=== PATIENT | male | born 1965 | race Caucasian/White ===

== ENCOUNTER 2021-12-25 13:45 | Observation (INO) ==
--- NOTE | 2021-12-25 14:47 | Emergency Department Note ---
Nausea/Vomiting/Diarrhea HPI General Chief complaint: Nausea/Vomiting/Diarrhea Stated complaint: gastric obstruction Time Seen by Provider: 12/25/21 14:45 Source: patient Mode of arrival: ambulatory Limitations: no limitations History of Present Illness HPI Narrative: Narrative: Patient is a 56-year-old male that presents to the emergency department today with a chief complaint of feeling his food is stuck in his esophagus. This started yesterday evening when he was eating vegetables wrapped in saul. He feels that there is a piece of saul stuck in his esophagus. He has had this occur once in the past and went to the emergency department and indicates that he was given morphine and nitro that resolved his problem. He has a history of a gastric bypass that was done in the early . He indicates that since yesterday he has not been able to keep down any fluids and approximately 10 minutes to 30 minutes after he drinks fluids he vomits the fluid back up. He denies any abdominal pains, chest pain, shortness of breath, or difficulty breathing. He has not had any fevers or chills. He denies any constipation, diarrhea, melena, or hematochezia. Related Data Home Medications Medication Instructions Recorded Confirmed cyclobenzaprine 10 mg tablet 1 tab PO HS 12/25/21 12/25/21 diphenhydramine 25 1 tab PO QHS 12/25/21 12/25/21 mg-acetaminophen 500 mg tablet (Tylenol PM Extra Strength) lisdexamfetamine 70 mg capsule 1 cap PO QAM 12/25/21 12/25/21 (Vyvanse) metoprolol tartrate 50 mg tablet 1 tab PO BID 12/25/21 12/25/21 venlafaxine 150 mg 1 cap PO QHS 12/25/21 12/25/21 capsule,extended release 24 hr Allergies Allergy/AdvReac Type Severity Reaction Status Date / Time No Known Drug Allergies Allergy Unverified 12/25/21 13:59 Review of Systems ROS ROS Narrative: Narrative: All systems ED: reviewed and negative except as stated. [facility] Narrative Patient History Narrative: Narrative: Medical/Surgical/Family History All Active Problems (Updated 12/25/21 @ 19:35 by JAQUAN Angel) Recurrent vomiting (Acute) Foreign body of esophagus (Acute) Surgical History (Updated 12/25/21 @ 17:45 by Obed Herndon MD) Gastric bypass status for obesity History of appendectomy Exam Narrative Narrative: Narrative: General Limitations: no limitations General appearance: Present alert and in no apparent distress ENT ENT: Present normal oropharynx and mucous membranes moist Neck Neck: Present normal inspection and full ROM; Absent lymphadenopathy Chest Chest: Present symmetric chest wall rise Respiratory Respiratory: Present normal lung sounds bilaterally; Absent respiratory distress, rales/crackles or accessory muscle use Cardiovascular Cardiovascular: Present regular rate, normal rhythm and normal heart sounds Adbominal Abdominal: Present soft and normal bowel sounds; Absent distention, tenderness, mass or hernia Extremities Extremities: Present normal inspection and normal capillary refill Neurological Neurological: Present alert and oriented X3 Psychiatric Psychiatric: Present normal affect and normal mood Skin Skin: Present warm (WNL), dry and normal color Course Vital Signs Vital signs: Vital Signs Temperature 97.7 F 12/25/21 13:56 Pulse Rate 70 12/25/21 13:56 Respiratory Rate 16 12/25/21 13:56 Blood Pressure 181/104 12/25/21 13:56 Pulse Oximetry (%) 97 12/25/21 13:56 Oxygen Delivery Method 12/25/21 13:56 Temperature 97.7 F 12/25/21 13:56 Pulse Rate 76 12/25/21 19:01 Respiratory Rate 16 12/25/21 13:56 Blood Pressure 172/102 12/25/21 19:01 Pulse Oximetry (%) 94 12/25/21 19:01 Oxygen Delivery Method 12/25/21 13:56 MDM MDM Narrative Medical decision making narrative: Narrative: Patient is a 56-year-old male with past surgical history of gastric bypass in the early that comes in today after he was eating vegetables that was wrapped in saul yesterday evening and feels that food is stuck in the esophagus area. He has not been able to keep down fluids. Today CBC, lipase, CMP was obtained which are all rather unremarkable. Abdominal x-ray obtained today that does not show any evidence of small bowel obstruction and has nonspecific bowel gas pattern. He was given 1 L normal saline, Reglan which did not improve his symptoms at all and he did have some more vomiting. 1 mg of IV glucagon given to see if this may help with resolving symptoms and he did report some improvement with symptom, however with oral challenge patient was unable to keep down fluids and vomited water shortly after ingestion. I was able to speak with Dr. Herndon who is on-call today for general surgery regarding this patient. He agrees to accept patient to hospital admission for observation where he will plan on repeating doses of glucagon and Reglan to see if we can have patient pass the foreign body, and if unsuccessful he will likely need to take patient to the OR for EGD. Lab Data Result diagrams: 12/25/21 15:08 12/25/21 15:08 Labs: Lab Results 12/25/21 12/25/21 Range/Units 15:08 15:08 WBC 6.8 (4.5-11.0) K/mcL RBC 4.79 (4.63-6.08) M/mcL Hgb 14.5 (13.7-17.5) g/dL Hct 43.7 (40.1-51.0) % MCV 91.2 (80.0-100.0) fL MCH 30.3 (26.0-34.0) pg MCHC 33.2 (31.0-36.0) g/dL RDW 13.2 (11.5-14.5) % Plt Count 263 (140-440) K/mcL MPV 9.6 (8.8-12.5) fL Immature Gran % (Auto) 0.1 (0.0-0.5) % Neut % (Auto) 65.6 (38.0-78.0) % Lymph % (Auto) 22.9 (15.5-49.0) % [place] % (Auto) 8.9 (1.0-12.0) % Eos % (Auto) 1.8 (0.0-7.0) % Baso % (Auto) 0.7 (0.0-2.0) % Lymph # (Auto) 1.56 (1.50-4.80) K/mcL [place] # (Auto) 0.61 (0.10-0.90) K/mcL Eos # (Auto) 0.12 (0.00-0.70) K/mcL Baso # (Auto) 0.05 (0.00-0.30) K/mcL Immature Gran # 0.01 (0.00-0.05) K/mcl Absolute Neutrophils 4.47 (1.80-8.00) K/mcL Sodium 140 (133-145) mmol/L Potassium 3.9 (3.3-5.1) mmol/L Chloride 102 (96-108) mmol/L Carbon Dioxide 28 (22-30) mmol/L Anion Gap 10.0 (8.0-16.0) BUN 11 (6-20) mg/dL Creatinine 1.0 (0.7-1.2) mg/dL GFR Calculation 84 Glucose 94 (70-105) mg/dL Calcium 9.2 (8.6-10.4) mg/dL Total Bilirubin 0.9 (0.1-1.0) mg/dL AST 14 (<40) U/L ALT 9 (<40) U/L Alkaline Phosphatase 72 (39-117) U/L Total Protein 7.1 (5.9-8.4) gm/dL Albumin 4.1 (3.2-5.2) gm/dL Globulin 3.0 (2.2-3.7) gm/dL Albumin/Globulin Ratio 1.4 (1.0-2.3) Lipase 16 (7-60) U/L Radiology Data Radiology results reviewed: Yes I reviewed the patient's radiology results. Radiology results narrative: Ordering Physician:Janusz Thomas Date of Service:12/25/21 Procedure(s):XR abdomen 2V INDICATION: emesis TECHNIQUE: Supine and upright abdomen. COMPARISON: None FINDINGS:Bowel gas pattern is unremarkable. No dilated gas-filled small bowel. No pneumatosis. No biliary or portal venous gas. There is no pneumoperitoneum. There are multiple surgical clips at the level of the gastroesophageal junction and in the right upper quadrant. IMPRESSION: Nonspecific bowel gas pattern. No evidence for mechanical small bowel obstruction Interpreted and Authenticated by: Jaime Armendariz 12/25/21 Discharge Plan Patient/Caregiver Discharge Instructions Pt seen by HERD TESTER/PA only: No Clinical Impression: Foreign body of esophagus Patient Disposition: Xfer As Outpt/Obs ([facility]) Discharge Date/Time: 12/25/21 19:37
[2021-12-25] MEDS ORDERED: 0.9 % SODIUM CHLORIDE 1,000 ML IV ONE (14:51)
[2021-12-25] MEDS ORDERED: METOCLOPRAMIDE 10 MG/2 ML VIAL IV ONE (14:51)
[2021-12-25 15:52] LABS: Basophils # (Auto) 0.05 K/mcL (0.00-0.30); Basophils % (Auto) 0.7 % (0.0-2.0); Eosinophils # (Auto) 0.12 K/mcL (0.00-0.70); Eosinophils % (Auto) 1.8 % (0.0-7.0); Hematocrit 43.7 % (40.1-51.0); Hemoglobin 14.5 g/dL (13.7-17.5); Lymphocytes # (Auto) 1.56 K/mcL (1.50-4.80); Lymphocytes % (Auto) 22.9 % (15.5-49.0); Mean Cell Volume 91.2 fL (80.0-100.0); Mean Corpuscular HGB Conc 33.2 g/dL (31.0-36.0); Mean Platelet Volume 9.6 fL (8.8-12.5); Monocytes # (Auto) 0.61 K/mcL (0.10-0.90); Monocytes % (Auto) 8.9 % (1.0-12.0); Neutrophils % (Auto) 65.6 % (38.0-78.0); Platelet Count 263 K/mcL (140-440); RBC 4.79 M/mcL (4.63-6.08); Red Cell Distribution Width 13.2 % (11.5-14.5); WBC 6.8 K/mcL (4.5-11.0)
[2021-12-25] MEDS ORDERED: GLUCAGON,HUMAN RECOMBINANT 1 MG VIAL IV ONE (16:03)
[2021-12-25 16:12] LABS: ALT/SGPT 9 U/L (<40); AST/SGOT 14 U/L (<40); Albumin 4.1 gm/dL (3.2-5.2); Albumin/Globulin Ratio 1.4 (1.0-2.3); Alkaline Phosphatase 72 U/L (39-117); Bilirubin,Total 0.9 mg/dL (0.1-1.0); Blood Urea Nitrogen 11 mg/dL (6-20); Calcium 9.2 mg/dL (8.6-10.4); Carbon Dioxide 28 mmol/L (22-30); Chloride 102 mmol/L (96-108); Glomerular Filtration Rate 84; Glucose 94 mg/dL (70-105)
--- NOTE | 2021-12-25 17:00 | XRay Report ---
INDICATION: emesis TECHNIQUE: Supine and upright abdomen. COMPARISON: None FINDINGS:Bowel gas pattern is unremarkable. No dilated gas-filled small bowel. No pneumatosis. No biliary or portal venous gas. There is no pneumoperitoneum. There are multiple surgical clips at the level of the gastroesophageal junction and in the right upper quadrant. IMPRESSION: Nonspecific bowel gas pattern. No evidence for mechanical small bowel obstruction Interpreted and Authenticated by: Jaime Armendariz 12/25/21
[2021-12-25] MEDS ORDERED: ONDANSETRON 4 MG/2 ML VIAL IV ONE (17:09)
[2021-12-25] MEDS ORDERED: PROMETHAZINE 25 MG/ML VIAL IV PRN (17:31)
[2021-12-25] MEDS ORDERED: ONDANSETRON 4 MG/2 ML VIAL IV PRN (17:31)
[2021-12-25] MEDS ORDERED: DIAZEPAM 10 MG/2 ML SYRINGE IV PRN (17:37)
[2021-12-25] MEDS: 0.9 % SODIUM CHLORIDE 1,000 ML IV SCH ×2 (17:41→21:15)
--- NOTE | 2021-12-25 17:48 | General Surg History&Physical ---
HPI History of Present Illness Patient information: Note initiated : 12/25/21 at 5:42 pm Service Date, if different from initiated Date: [] Patient: Rishi Maldonado a 56 y/o M admitted on for gastric obstruction. Chief Complaint: [] Chief complaint: Foreign body of esophagus History of present illness: Mr. Maldonado is a 56 year old M with prior history of foreign body of the esophagus with obstruction. Yesterday the patient was weak eating some saul and felt as if his esophagus was obstructed. He tried throughout the night to dislodge it but had recurrent vomiting. He did not have any hematemesis. Patient came to the emergency room where he was treated with Reglan and glucagon without results. He has responded to Reglan and glucagon in the past so he is admitted and he will receive the medication every 4-6 hours as needed. If he does not dislodge the saul by the a.m. he will have upper endoscopy. If he should dislodge it he will be given clear liquids and monitored closely. Review of Systems All systems: reviewed and no additional remarkable complaints except as stated PFSH PFSH All Active Problems (Updated 12/25/21 @ 17:47 by Obed Herndon MD) Recurrent vomiting (Acute) Foreign body of esophagus (Acute) Surgical History (Updated 12/25/21 @ 17:45 by Obed Herndon MD) Gastric bypass status for obesity History of appendectomy MEDS/ALLERGIES Home Medications and Allergies Allergies Allergy/AdvReac Type Severity Reaction Status Date / Time No Known Drug Allergies Allergy Unverified 12/25/21 13:59 Physical Examination Vital Signs Vital signs: Temp Pulse Resp BP Pulse Ox O2 Del Method 97.7 F 71 16 182/112 97 12/25/21 13:56 12/25/21 17:25 12/25/21 13:56 12/25/21 17:25 12/25/21 17:25 12/25/21 13:56 General physical appearance General physical exam: well developed, well nourished, no distress, no pain and obese Eyes Eye exam: PERRL and normal ocular movement ENT ENT exam: normal mucosa Head Head exam IM: Present atraumatic, normal inspection and normocephalic Neck Neck exam: no masses, no bruits, trachea midline, no lymphadenopathy and no venous distension Cardiovascular Cardiovascular exam IM: Present normal rate and rhythm, bradycardia, irregular rhythm, +S1 and +S2; Absent JVD Respiratory Respiratory exam: normal expansion, normal respiratory effort and clear to auscultation Abdomen Abdomen: Present non tender and surgical scars (Healed lower midline scar) Hernia: Present incisional (Upper midline incisional hernia) Integumentary Integumentary: Present no rash, no growths and no abnormal pigmentation Neurologic Neurologic: Present normal coordination and normal sensation Musculoskeletal Musculoskeletal: Present normal gait, normal posture and other Psychiatric Psychiatric: Present oriented to time, oriented to person, oriented to place, speech is normal and memory intact Results Labs Result diagrams: 12/25/21 15:08 12/25/21 15:08 Labs: Diabetes panel 12/25/21 Range/Units 15:08 Sodium 140 (133-145) mmol/L Potassium 3.9 (3.3-5.1) mmol/L Chloride 102 (96-108) mmol/L Carbon Dioxide 28 (22-30) mmol/L BUN 11 (6-20) mg/dL Creatinine 1.0 (0.7-1.2) mg/dL Glucose 94 (70-105) mg/dL Calcium 9.2 (8.6-10.4) mg/dL AST 14 (<40) U/L ALT 9 (<40) U/L Alkaline Phosphatase 72 (39-117) U/L Total Protein 7.1 (5.9-8.4) gm/dL Albumin 4.1 (3.2-5.2) gm/dL Calcium panel 12/25/21 Range/Units 15:08 Calcium 9.2 (8.6-10.4) mg/dL Albumin 4.1 (3.2-5.2) gm/dL Pituitary panel 12/25/21 Range/Units 15:08 Sodium 140 (133-145) mmol/L Potassium 3.9 (3.3-5.1) mmol/L Chloride 102 (96-108) mmol/L Carbon Dioxide 28 (22-30) mmol/L BUN 11 (6-20) mg/dL Creatinine 1.0 (0.7-1.2) mg/dL Glucose 94 (70-105) mg/dL Calcium 9.2 (8.6-10.4) mg/dL Adrenal panel 12/25/21 Range/Units 15:08 Sodium 140 (133-145) mmol/L Potassium 3.9 (3.3-5.1) mmol/L Chloride 102 (96-108) mmol/L Carbon Dioxide 28 (22-30) mmol/L BUN 11 (6-20) mg/dL Creatinine 1.0 (0.7-1.2) mg/dL Glucose 94 (70-105) mg/dL Calcium 9.2 (8.6-10.4) mg/dL Total Bilirubin 0.9 (0.1-1.0) mg/dL AST 14 (<40) U/L ALT 9 (<40) U/L Alkaline Phosphatase 72 (39-117) U/L Total Protein 7.1 (5.9-8.4) gm/dL Albumin 4.1 (3.2-5.2) gm/dL All other labs normal. A/P Assessment and plan (1) Foreign body of esophagus: Status: Acute (2) Recurrent vomiting: Status: Acute Plan IV normal saline at 100 cc/h Reglan 10 mg IV every 6 hours Glucagon 1 mg IV every 4 hours x4 doses Diazepam 5 mg IV every 4 hours Sepsis Sepsis Identified: No Time Spent With Patient Time: Total time spent is greater than 50% in coordination of care (as documented) at patient's floor/unit and/or counseling patient:
[2021-12-25] MEDS: METOCLOPRAMIDE 10 MG/2 ML VIAL IV SCH (18:45)
[2021-12-25] MEDS: GLUCAGON,HUMAN RECOMBINANT 1 MG VIAL IV SCH (20:30)
[2021-12-26] MEDS: GLUCAGON,HUMAN RECOMBINANT 1 MG VIAL IV SCH ×3 (00:15→08:38)
[2021-12-26] MEDS: METOCLOPRAMIDE 10 MG/2 ML VIAL IV SCH ×2 (00:15→05:50)
[2021-12-26] MEDS: 0.9 % SODIUM CHLORIDE 1,000 ML IV SCH (04:42)
[2021-12-26] MEDS ORDERED: PANTOPRAZOLE 40 MG VIAL IV SCH (07:30)
[2021-12-26] MEDS ORDERED: DIAZEPAM 10 MG/2 ML SYRINGE IV PRN (07:45)
--- NOTE | 2021-12-26 10:15 | XRay Report ---
INDICATION: h/o difficulty swallowing;s/p gastric bypass; TECHNIQUE: Routine barium swallow and upper GI. 46 seconds fluoroscopy utilized COMPARISON: None. FINDINGS: Normal esophageal peristalsis although mild delay in emptying of the esophagus. There is no esophageal stricture. No esophageal mass. There is bulbous dilatation distally with an appearance most consistent with prominent phrenic ampulla. There is slight extension of gastric mucosa above the diaphragm consistent with hiatal hernia. Patient has undergone previous gastric bypass. There is no obstruction. There is rapid passage of contrast material into the small bowel. There is no inducible gastroesophageal reflux IMPRESSION: 1. No esophageal stricture or mass 2. 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 Previous gastric bypass. No obstruction Interpreted and Authenticated by: Jaime Armendariz 12/26/21
--- NOTE | 2021-12-26 10:44 | Discharge Summary ---
Discharge Provider Provider IMPORTANT FOLLOW-UP INFORMATION FOR PCP: Patient information: Note initiated : 12/26/21 at 10:38 am Service Date, if different from initiated Date: [] Patient: Rishi Maldonado 56 y/o M admitted on 12/25/21 for gastric obstruction. Chief Complaint: [] Date of admission: 12/25/21 19:50 Discharge date: 12/26/21 Primary care physician: Renato Guajardo Admitting clinician: Obed Herndon Attending physician on admission: Obed Herndon Consults: 12/25/21 Consult to Physician [CONS] Stat Comment: Consulting Provider: Obed Herndon Reason For Exam: Physician to Consult Attending physician on discharge: Obed Herndon Discharging clinician: Obed Herndon COURSE Hospital Course Hospital course: Patient is doing well. He noticed during the night that his saliva was passing without difficulty. He has not had any emesis since admission. He was given a glass of water earlier today and that passed without difficulty. Upper GI series was done and it showed normal emptying of the esophagus. The EG junction did not show any evidence of stricture and passage of contrast into the small bowel was unremarkable. Patient is clinically stable and is ready for discharge. Discharge diagnosis: Foreign body of the esophagus Secondary discharge diagnosis: Distal esophageal obstruction, resolved Reason for admission: Foreign body of the esophagus Procedures: None Pertinent studies/significant findings: Upper GI series Complications: None Time Spent with Patient Time attestation: Total time spent providing and/or coordinating discharge services: Time spent: Less than 30 minutes Physical Examination Vital Signs Vital signs: Temp Pulse Resp BP Pulse Ox O2 Del Method O2 Flow Rate 98 F 53 L 20 157/87 98 0 12/26/21 07:42 12/26/21 04:00 12/26/21 07:42 12/26/21 07:42 12/26/21 07:42 12/26/21 07:42 12/26/21 04:00 General physical appearance General physical exam: well developed, well nourished, no distress and no pain Eyes Eye exam: PERRL and normal ocular movement ENT ENT exam: normal nares and no hearing loss Head Head exam IM: Present atraumatic, normal inspection and normocephalic Neck Neck exam: no masses, no bruits, trachea midline, no lymphadenopathy and no venous distension Cardiovascular Cardiovascular exam IM: Present normal rate and rhythm, +S1 and +S2 Respiratory Respiratory exam: normal expansion, normal respiratory effort and clear to auscultation Abdomen Abdomen: Present soft and non tender; Absent guarding or distended Integumentary Integumentary: Present no rash, no growths and no abnormal pigmentation Neurologic Neurologic: Present normal coordination and normal sensation Musculoskeletal Musculoskeletal: Present normal gait and normal posture Psychiatric Psychiatric: Present oriented to time, oriented to person, oriented to place, speech is normal and memory intact Discharge Plan Patient/Caregiver Discharge Instructions Activity: increase activity as tolerated Diet: Regular Diet Prescriptions: No Action venlafaxine 150 mg capsule,extended release 24hr 1 cap PO QHS Vyvanse 70 mg capsule 1 cap PO QAM metoprolol tartrate 50 mg tablet 1 tab PO QHS cyclobenzaprine 10 mg tablet 1 tab PO HS diphenhydramine-acetaminophen [Tylenol PM Extra Strength] 25-500 mg Tablet 1 tab PO QHS Prescription drug monitoring program results: PDMP not reviewed Follow Up Plan Follow up with: Renato Guajardo MD [Primary Care Provider] - Patient Disposition: Home, Self-Care Plan of Treatment: Routine follow-up with oncology and with Dr. Beal Prognosis: Good Rehab Potential: Good I certify that the patient requires SNF services: No Overall status at discharge: patient is back to baseline Discharge Orders: Discharge Order (Routine); Ordered 12/26/21 Ordered By: Obed Herndon Pending Pending Pending: Resuscitation Status Full Code Diet NPO Diet (NOW) Start Sat Dec 26 1731 Sodium Chloride (Sodium Chloride 0.9%) 1,000 mls @ 100 mls/hr IV .Q10H DAVID Last Infusion: 12/26/21 08:38 Dose: 0 mls/hr Documented By: Admin: 12/26/21 04:42 Dose: Not Given Documented By: [email or web address] Admin: 12/25/21 21:15 Dose: 100 mls/hr Documented By: [email or web address] Infusion: 12/25/21 21:15 Dose: 0 mls/hr Documented By: Infusion: 12/25/21 20:00 Dose: 100 mls/hr Documented By: Infusion: 12/25/21 19:30 Dose: 0 mls/hr Documented By: Admin: 12/25/21 17:41 Dose: 100 mls/hr Documented By: KRISHNA Metoclopramide HCl (Metoclopramide 10 Mg/2 Ml Vial) 10 mg IV Q6 [facility] Last Admin: 12/26/21 05:50 Dose: 10 mg Documented By: Admin: 12/26/21 00:15 Dose: 10 mg Documented By: Admin: 12/25/21 18:45 Dose: 10 mg Documented By: KRISHNA Pantoprazole Sodium (Pantoprazole 40 Mg Vial) 40 mg IV BIDAC [facility] Last Admin: 12/26/21 08:38 Dose: 40 mg Documented By: [email or web address] Shift Summary 12/26/21 03:08 Shift Summary by Payton Tinoco&JEAN [email or web address], up ad maira in room. Pt has not complained of nausea or discomfort since admit, as of this writing. Pt has scheduled IV medications. Glucagon 1mg IV Q4H and Reglan 10mg IV Q6H. Per Dr. Herndon's H&P ... If he does not dislodge the saul by the a.m. he will have upper endoscopy. IV 20G L FA running NS at 100ml/hr Turns self in bed Last BM: 12/23 12/25 19:[address] Herndon to [facility] OBS status with diagnosis: Foreign body of esophagus Recent Hx: ED visit summary-triage report A 56 YO male presented to ED, on 12/25 at 13:56, with chief complaint: Nausea/Vomiting/Diarrhea. Description of symptoms: Presents to ED with complaints of abd pain, feels like he can't get food to pass through intestines. Onset after eating yesterday. Pt had gastric bypass early and has had this happen in the past. Has not been able to keep anything down since. Initialized on 12/26/21 03:08 - END OF NOTE
== END 2021-12-26 12:15 | disposition home or self-care (01) ==
LOC: ED 13:45 → MEDSUR 13:45
PROVIDERS: ADMIT Family Medicine Adult Medicine; ATTEND Family Medicine Adult Medicine